=== PATIENT | male | born 1985 | race Caucasian/White ===

== ENCOUNTER 2022-04-11 13:21 | Outpatient (CLI) | payer OTHER ==
--- NOTE | 2022-04-11 16:53 | MRI Report ---
PROCEDURE: LUMBAR SPINE WO INDICATIONS: LOW BACK PAIN TECHNIQUE: Noncontrast sagittal T1 spin echo and T2 fast echo, sagittal STIR, axial T1 and T2 fast spin echo thr ough the lumbar spine. In cases with scoliosis, additional coronal T2 fast spin echo may be performe d. COMPARISON: None. FINDINGS: Image quality: Excellent. Alignment and Curvature: There is mild straightening of normal lumbar lordosis. Bone Marrow: Marrow is of normal overall signal. No acute vertebral body compression fractures. Spinal Cord: Conus medullaris terminates at the L1 level. Visualized cord demonstrates normal signa l and size. Paraspinous Soft Tissues: No paravertebral masses. T12-L1: Normal in appearance. L1-L2: Loss of disc signal is seen. No significant disc bulge, central canal stenosis or neural fo raminal narrowing. L2-L3: Normal in appearance. L3-L4: Mild diffuse disc bulge is seen. Bilateral facet arthrosis is also noted. There is mild cent ral canal stenosis and bilateral neural foraminal narrowing. L4-L5: Broad-based disc bulge and bilateral facet arthrosis is seen with mild central canal stenosi s and moderate to severe bilateral neural foraminal narrowing slightly worse on the left side. Bulgin g disc likely contacting bilateral exiting L4 nerve roots. L5-S1: Loss of disc signal. Central to right-sided disc herniation and bilateral facet arthrosis is seen with mild central canal stenosis, moderate to severe right-sided neural foraminal narrowing. IMPRESSION: 1. Central to right-sided disc herniation and bilateral facet arthrosis at L5-S1 level causing mild c entral canal stenosis and moderate to severe right-sided neural foraminal narrowing. 2. Degenerative disc disease and bilateral facet arthrosis at L3-4 and L4-5 levels causing. Is degree s of central canal stenosis and bilateral neural foraminal narrowing as described above. 3. No marrow edema. No acute compression fracture or spondylolisthesis. No gross paraspinous soft tis jeferson abnormalities. Reviewed by: Shyam Feldman MD on 04/11/2022 4:52 PM PST Approved by: Shyam Feldman MD on 04/11/2022 4:52 PM PST Station ID: [id number]
== END 2022-04-11 13:22 | disposition home or self-care (01) ==
LOC: DI 13:21
PROVIDERS: ATTEND Physician Assistant
DX: M51.16 Intervertebral disc disorders with radiculopathy, lumbar region (principal); M47.817 Spondylosis without myelopathy or radiculopathy, lumbosacral region; M48.07 Spinal stenosis, lumbosacral region; M48.061 Spinal stenosis, lumbar region without neurogenic claudication; M47.816 Spondylosis without myelopathy or radiculopathy, lumbar region